=== PATIENT | male | born 2000 | race Caucasian/White ===

== ENCOUNTER 2023-01-24 12:11 | Emergency (ER) | payer OTHER, SELFPAY ==
--- NOTE | ~2023-01-24 | XR_ITS ---
EXAMINATION: XR ankle RT min 3V INDICATION: Right ankle pain TECHNIQUE: Four views of the right ankle are obtained. COMPARISON: None available FINDINGS: There is lateral soft tissue swelling of ankle. Bone alignment is normal. There is no fract ure. IMPRESSION: 1. Ankle soft tissue swelling without acute osseous abnormality. Reviewed, dictated and finalized at location A.
[2023-01-24 12:43] VITALS: BP 132/70; PULSE 95; RESP 18; TEMP 36.8; O2SAT 99
--- NOTE | 2023-01-24 13:36 | ED.LOWEXIN ---
HPI - Extremity Injury (Lower) General Chief Complaint: Extremity Injury, Lower Stated Complaint: lower extremity injury Time Seen by Provider: 01/24/23 13:27 Source: patient, family (Mother) and RN notes reviewed Mode of arrival: ambulatory Limitations: no limitations History of Present Illness HPI Narrative: Patient presents today complaining of a right ankle injury. Last night he was standing on a cinder block when it gave out and he twisted his ankle. Denies numbness or tingling. States he has difficulty ambulating. Currently rates his pain 1/10, which increases significantly with movement or weight-bearing. He has tried no [id number] interventions prior to arrival. Related Data Allergies Allergy/AdvReac Type Severity Reaction Status Date / Time No Known Allergies Allergy Unverified 12/25/19 17:06 Review of Systems Review of Systems: CONSTITUTIONAL: Denies body aches, fever, chills, or sweats. EYES: Denies visual changes, redness, or discharge. ENT: Denies rhinorrhea, congestion, sore throat, or otalgia. CARDIOVASCULAR: Denies chest pain, palpitations, or edema. RESPIRATORY: Denies cough or dyspnea. GASTROINTESTINAL: Denies abdominal pain, nausea, vomiting, or diarrhea. GENITOURINARY: Denies dysuria or hematuria. SKIN: Denies rash, itching, or wounds. MUSCULOSKELETAL: Denies back pain, or myalgia.+ right ankle injury NEUROLOGIC: Denies headache, numbness, tingling, or weakness. PSYCH: Denies depression or anxiety. PMFSH Comments At time of signature, I have reviewed and agree with nursing past medical, surgical, social and family history unless otherwise noted. Please see nursing chart for further information. There is no relevant family history pertinent to the presenting complaint Exam Narrative: GENERAL: Well-appearing, well-nourished, and in no acute distress. HEAD: Normocephalic, atraumatic. EYES: EOMI. No redness or drainage. Conjunctivae normal. ENT: Mucous membranes pink and moist. NECK: Normal AROM. CHEST: No respiratory distress. EXTREMITIES: Right ankle: Moderate swelling about the ankle. Tenderness medially and anteriorly. No tenderness laterally. Distal sensation intact. Capillary refill normal. Pedal pulse normal. Full range of motion of the ankle with mild increased pain. SKIN: Warm, dry, no rash. Capillary refill normal. Normal skin turgor. NEURO: No focal deficits. Alert and oriented x3. Gait steady. PSYCH: Normal affect. No signs of depression or anxiety. Course Course Level of Care: Express Care Visit Vital Signs Vital signs: Vital Signs Temperature 98.3 F 01/24/23 12:43 Pulse Rate 95 01/24/23 12:43 Respiratory Rate 18 01/24/23 12:43 Blood Pressure 132/70 01/24/23 12:43 Pulse Oximetry 99 01/24/23 12:43 Oxygen Delivery Room Air 01/24/23 12:43 Temperature 98.3 F 01/24/23 12:43 Pulse Rate 95 01/24/23 12:43 Respiratory Rate 18 01/24/23 12:43 Blood Pressure 132/70 01/24/23 12:43 Pulse Oximetry 99 01/24/23 12:43 Oxygen Delivery Room Air 01/24/23 12:43 Reviewed. Pt has been instructed to follow up with his PCP regarding his elevated blood pressure today. MDM - Extremity Injury (Lower) MDM Narrative Medical decision making narrative: Justice wrap applied. X-rays negative for fracture. Discussed [id number] treatment. No prescription medications indicated at this time. Patient agrees with plan. Anticipatory guidance given. Differential Diagnosis Differential diagnosis: Likely ankle sprain and strain and ankle fracture Imaging Data Radiologist's impression: ITS Impressions Ankle X-Ray 01/24/23 13:08 IMPRESSION: 1. Ankle soft tissue swelling without acute osseous abnormality. Critical Care Time Critical Care Time Critical Care Time: No Discharge Plan Discharge Clinical Impression: Right ankle sprain Qualifiers: Encounter type: initial encounter Involved ligament of ankle: un
== END 2023-01-24 13:52 | disposition home or self-care (01) ==
PROVIDERS: Emergency Provider Nurse Practitioner
DX: S93.401A Sprain of unspecified ligament of right ankle, initial encounter (principal); X50.0XXA Overexertion from strenuous movement or load, initial encounter
CPT/HCPCS: 73610; 99213; G0463

== ENCOUNTER 2024-02-07 11:54 | Emergency (ER) | payer OTHER, SELFPAY ==
--- NOTE | ~2024-02-07 | XR_ITS ---
XR chest 2V Ordering provider: Marysol Chun APRN History: 23 years Male with . short of breath TODAY . Comparison: None. FINDINGS: MEDIASTINUM: The cardiac silhouette is not enlarged. LUNGS: No infiltrates, effusions or pneumothorax. OTHER: No free air under the diaphragm. IMPRESSION: No acute cardiopulmonary pathology. Reviewed, dictated and finalized at location A.
[2024-02-07 12:32] VITALS: BP 125/72; PULSE 99; RESP 20; TEMP 36.6; O2SAT 97
--- NOTE | 2024-02-07 12:40 | ED.SOB ---
HPI - SOB/Dyspnea General Chief Complaint: Shortness of Breath/Dyspnea Stated Complaint: SOB Time Seen by Provider: 02/07/24 12:40 Source: patient, RN notes reviewed and old records reviewed Mode of arrival: ambulatory Limitations: no limitations History of Present Illness HPI Narrative: patient presents with complaints of intermittent shortness of breath for the past week. He reports associated cough. He denies any fever, chills, sweats. He denies any history of asthma. He does report some associated wheezing. He is not in any distress upon arrival, speaking in complete sentences Related Data Allergies Allergy/AdvReac Type Severity Reaction Status Date / Time No Known Allergies Allergy Verified 02/07/24 12:32 Review of Systems Review of Systems: All systems reviewed & are unremarkable except as noted in HPI and below Constitutional: Constitutional: Reports no additional constitutional complaints ENT: Reports system reviewed and no additional complaints, except as documented Cardiovascular: Cardiovascular: Reports no additional cardiovascular complaints Respiratory: Respiratory: Reports as per HPI, Reports no additional respiratory complaints, Reports cough, Reports dyspnea and Reports wheezing Gastrointestinal: Gastrointestinal: Reports no additional gastrointestinal complaints PMFSH Comments At the time of my signature, I reviewed and agree with the nursing past medical, surgical, social, and family history. There is no relevant family history pertinent to the patient complaint. Exam Const: General: cooperative, no acute distress, alert and awake Orientation/consciousness: oriented to person, oriented to place and oriented to time HENMT: Head: normal to inspection Mouth: Yes moist mucous membranes Resp: Effort & Inspection: normal respiratory effort and able to speak in complete sentences Auscultation: clear to auscultation bilaterally, no crackles, no rales, no rhonchi, wheezes expiratory wheezes and diminished lung sounds Cardio: Palpation: normal PMI Rate: regular rate Rhythm: regular rhythm Heart sounds: S1 normal heart sound present and S2 normal heart sound present Neuro: General: oriented to person, oriented to place and oriented to time Cranial nerves: Yes CN's II-XII intact bilaterally Psych: Appearance: grossly normal Thought process: Normal thought process present Insight: Good insight present (Psych) Judgement: Good judgement present (Psych) Course Course Level of Care: Express Care Visit Reevaluation(s) Date: 02/07/24 Time: 13:45 Additional Reevaluation(s): wheezing diminished in air movement improved after prednisone and DuoNeb Vital Signs Vital signs: Vital Signs Temperature 97.9 F 02/07/24 12:32 Pulse Rate 99 02/07/24 12:32 Respiratory Rate 20 02/07/24 12:32 Blood Pressure 125/72 02/07/24 12:32 Pulse Oximetry 97 02/07/24 12:32 Oxygen Delivery Room Air 02/07/24 12:32 Temperature 97.9 F 02/07/24 12:32 Pulse Rate 99 02/07/24 12:32 Respiratory Rate 20 02/07/24 12:32 Blood Pressure 125/72 02/07/24 12:32 Pulse Oximetry 97 02/07/24 12:32 Oxygen Delivery Room Air 02/07/24 12:32 Reviewed MDM - SOB/Dyspnea MDM Narrative Medical decision making narrative: patient much improved after steroids and neb treatment. Treat as bronchospasm, steroids and albuterol at home. Work note for 2 days. Follow with primary care provider. Emergency department for new or worse symptoms. Some parts of this dictation were generated by voice recognition software and may contain typographical and/or grammatical inaccuracies. Discharge instructions reviewed with patient, as well as provided in writing per nursing staff. The instructions also include specific and strict return/GO TO THE ER as well as f/u information. All questions have been answered, and the patient deny any further questions with discharge and discharge plan. Differential Diagnosis
[2024-02-07] MEDS: predniSONE 20 MG TABLET 60 MG PO (12:58)
[2024-02-07] MEDS: IPRATROPIUM 0.5 MG/ALBUTEROL SULFATE 2.5 MG AMPUL.NEB 3 ML INHALATION (12:59)
== END 2024-02-07 14:00 | disposition home or self-care (01) ==
PROVIDERS: Emergency Provider Nurse Practitioner Family; PCP Family Medicine
DX: J98.01 Acute bronchospasm (principal)
CPT/HCPCS: 71046; 99213; G0463; J7512